=== PATIENT | male | born 1940 | race Hispanic/Latino ===

== ENCOUNTER → 2018-10-17 | Outpatient (CLI) | payer OTHER ==
[~2018-10-17] MED LIST: AMLO5TAB9 PO; ASPI-1012 PO; ATOR20TA65 PO; CETI10TA57 PO; HYDR-4457 PO; LISI40TA4 PO; TERBINAFINE PO; TYLENOL ARTHRITIS PO
== END | disposition home or self-care (01) ==
LOC: RAH 12:40
PROVIDERS: ATTEND Family Medicine
DX: R22.41 Localized swelling, mass and lump, right lower limb (principal)
CPT/HCPCS: 93971

== ENCOUNTER → 2018-12-13 | Outpatient (CLI) | payer OTHER | END | disposition home or self-care (01) | LOC: RAH 12:46 | PROVIDERS: ATTEND Family Medicine | DX: M71.21 Synovial cyst of popliteal space [Baker], right knee (principal) | CPT/HCPCS: 93971 ==

== ENCOUNTER 2024-07-23 20:18 | Emergency (ER) | payer OTHER ==
[~2024-07-23] VITALS: Ht 160 cm; Wt 83.0 kg
[~2024-07-23 20:18] MED LIST changes: +AMLO-257 PO; -AMLO5TAB9 PO; -LISI40TA4 PO; +LISI40TA9 PO
--- NOTE | 2024-07-23 20:25 | ERN ---
ED Note History of Present Illness Stated Complaint: C/O BACK PAIN TO LEFT SIDE Chief Complaint: Back Pain-No Injury Time Seen by MD: 20:21 Dictation: PATIENT IS AN 84-YEAR-OLD MALE HERE WITH COMPLAINTS OF LEFT FLANK PAIN WITH A AN ACUTE ONSET 17:00 HOURS HE STATES HE WAS SITTING THERE EATING DINNER WHEN HE FELT THE PAIN. HE DENIES ANY FEVER CHILLS NAUSEA VOMITING NO CHANGE IN URINATION. , DENIES ANY HISTORY OF BACK INJURY SURGERIES, HEMATURIA, UROLITHIASIS. Allergies: Coded Allergies: No Known Allergies (Unverified Allergy, Unknown, 12/12/18) Home Meds Active Scripts Hydrocodone/Acetaminophen ([place] 5-325 Tablet) 1 Each Tablet, 1-2 EACH PO Q6HPRN PRN for PAIN, #60 TAB Prov:NATHANIEL NEW MD 10/03/18 Aspirin (ASPIRIN) 325 Mg Tablet, 325 MG PO BID, #40 TAB Prov:NATHANIEL NEW MD 10/03/18 Reported Medications [Tylenol Arthritis] No Conflict Check, 650 MG PO AD PRN for PAIN LEVEL 1 TO 5 09/28/18 Cetirizine HCl (Cetirizine HCl) 10 Mg Tablet, 10 MG PO DAILY PRN for ALLERGIES, TAB 09/28/18 Atorvastatin Calcium (Atorvastatin Calcium) 20 Mg Tablet, 20 MG PO HS, TAB 09/28/18 [Torbinafine Hcl] No Conflict Check, 200 MG PO AM 09/28/18 Amlodipine Besylate (Amlodipine Besylate) 5 Mg Tablet, 5 MG PO DAILY, TAB 11/18/14 Lisinopril (Lisinopril) 40 Mg Tablet, 40 MG PO DAILY, TAB 03/13/14 Past Medical History Past Medical History: High Cholesterol, Hypertension Surgical History: Unknown RN Note Reviewed/Agreed w/PFSH: Yes Review of System Dictation CONSTITUTIONAL: NEGATIVE EXCEPT FOR HPI HEAD/FACE: NEGATIVE EXCEPT FOR HPI EENT: NEGATIVE EXCEPT FOR HPI RESPIRATORY: NEGATIVE EXCEPT FOR HPI GASTROINTESTINAL/ABDOMINAL: NEGATIVE EXCEPT FOR HPI LEFT FLANK PAIN GENITOURINARY: NEGATIVE EXCEPT FOR HPI MUSCULOSKELETAL: NEGATIVE EXCEPT FOR HPI INTEGUMENTARY: NEGATIVE EXCEPT FOR HPI NEUROLOGICAL/PSYCH: NEGATIVE EXCEPT FOR HPI HEMATOLOGIC/LYMPHATIC: NEGATIVE EXCEPT FOR HPI ALL SYSTEMS NEGATIVE, EXCEPT NOTED ABOVE. 13 POINT REVIEW OF SYSTEMS ASSESSED AND ALL NEGATIVE EXCEPT FOR ABOVE. Initial Vital Sign VS Vital Signs Date Time Temp Pulse Resp B/P (MAP) Pulse Ox O2 Delivery O2 Flow Rate FiO2 07/23/24 20:20 98.1 66 20 168/83 96 Room Air 07/23/24 20:48 0 21 Physical Exam Dictation VITAL SIGNS REVIEWED GENERAL APPEARANCE: ALERT, ORIENTED X 3, MODERATE ACUTE DISTRESS, WELL DEVELOPED, NOURISHED. HEAD AND FACE: NON-TRAUMATIC. EYES: PERRL, PINK CONJUNCTIVAS, EYELID NO TRAUMA, ANTERIOR CHAMBER WITH ARCUS SENILIS. EARS: PINNAS INTACT AND NO SIGNS OF TRAUMA OR ERYTHEMA EAR CANALS CLEAR AND NO DISCHARGE TM NO ERYTHEMA NOSE: NO DISCHARGE, NO BLEEDING. OROPHARYNX: MOUTH NORMAL, TONGUE PINK, PHARYNX CLEAR,NO ERYTHEMA, TONSILS NO EXUDATES, NO ABSCESSES NOTED, MUCOUS MEMBRANE MOIST NECK: SUPPLE, NON-TENDER, NO THYROMEGALY, NO MASSES, NO JVD, NO BRUITS BREAST:DEFERRED CHEST:NO TENDERNESS, NO CREPITUS, NO PARADOXICAL MOVEMENT, NO RETRACTIONS LUNGS:CLEAR, WELL-VENTILATED, SYMMETRIC, NO RALES, NO WHEEZING, NO RHONCHI, NO STRIDOR, GOOD BREATH SOUNDS BILATERALLY HEART: REGULAR RATE, REGULAR RHYTHM, NO MURMUR, NO GALLOPS VASCULAR: NO PERIPHERAL EDEMA, ABDOMEN: SOFT, POSITIVE BOWEL SOUNDS, NONDISTENDED, NO GUARDING, NONTENDER, NO REBOUND, NO MASSES NO HEPATOMEGALY, NO SPLENOMEGALY, NO MARCUS'S SIGN, NO HERNIAS. NEGATIVE CVAT BILATERALLY RECTAL: DEFERRED GENITAL: DEFERRED NEUROLOGICAL: NORMAL SPEECH, MOTOR FUNCTION INTACT, SENSORY FUNCTION INTACT MUSCULOSKELETAL: NECK NONTENDER, FULL RANGE OF MOTION, BACK NONTENDER, FULL RANGE OF MOTION, EXTREMITIES: NONTENDER, FULL RANGE OF MOTION SKIN: COLOR PINK, DRY, NO TURGOR, NO RASH, NO LACERATIONS, NO ABRASIONS, NO CONTUSIONS. LYMPHATIC: DEFERRED Results (Laboratory/Radiology) Laboratory/Radiology Laboratory Tests Test 07/23/24 21:40 Urine Color LIGHT-YELLOW (YELLOW) Urine Appearance CLEAR (CLEAR) Urine pH 6.0 (5.0-8.0) Urine Specific [place] 1.018 (1.001-1.031) Urine Protein NEGATIVE mg/dL (NEGATIVE) Urine Glucose (UA) NEGATIVE mg/dL (NEGATIVE) Urine Ketones NEGATIVE mg/dL (NEGATIVE) Urine Occult Blood NEGATIVE (NEGATIVE) Urine Nitrate NEGATIVE (NEGATIVE) Urine Bilirubin NEGATIVE mg/dL (NEGATIVE) Urine Urobilinogen 0.2 mg/dL (0.2-1.0) Urine Leukocyte Esterase NEGATIVE Chika/uL Labs Reviewed?: Yes ED Course ED Course Orders Procedure Category Date Status Time Ketorolac PHA 07/23/24 Complete Tromethamine 30mg/Ml 20:30 Urinalysis Profile LAB 07/23/24 In Process 20:23 Current Medications Medications (Trade) Dose Ordered Sig/Dara Route PRN Reason Start Time Stop Time Status Last Admin Dose Admin Ketorolac Tromethamine (toRADol) 30 mg ONCE ONCE IM 07/23/24 20:30 07/23/24 20:31 DC 07/23/24 20:43 Vital Signs Date Time Temp Pulse Resp B/P (MAP) Pulse Ox O2 Delivery O2 Flow Rate FiO2 07/23/24 20:48 67 19 156/73 99 Room Air* 0 21 07/23/24 20:20 98.1 66 20 168/83 96 Room Air 2200/URINE IS NEGATIVE NO HEMATURIA PATIENT WILL BE DISCHARGED HOME WITH ACUTE ONSET OF LUMBAR STRAIN GIVEN IBUPROFEN AND FLEXERIL, TOLD TO SEE HIS PRIMARY CARE Medical Decision Making MDM MEDICAL DECISION-MAKING BASED ON URINALYSIS TO DIFFERENTIATE BETWEEN MUSCLE PAIN AND GENITOURINARY ETIOLOGY FOR BACK PAIN URINALYSIS NEGATIVE PATIENT DISCHARGED HOME WITH A ACUTE LUMBAR STRAIN GIVEN IBUPROFEN AND FLEXERIL DX & DISP Disposition: Discharge Departure Impression: Primary Impression: Acute lumbar myofascial strain Condition: Stable Scripts Ibuprofen (Ibuprofen 800 mg Tab) 800 Mg Tab 800 MG PO Q8H PRN for fever or pain, #30 TAB 0 Refills Prov: COLIN HERNANDEZ PROJECT CONTROL MANAGER 07/23/24 Cyclobenzaprine HCl (Cyclobenzaprine HCl) 10 Mg Tablet 1 TAB PO TID for muscle spasms for 10 Days, #30 TAB 0 Refills Prov: COLIN HERNANDEZ PRO[employer] CONTROL MANAGER 07/23/24 Additional Instructions: FOLLOW-UP WITH PRIMARY CARE PROVIDER IN 1 TO 2 DAYS. TAKE MEDICATIONS DIRECTED HERE IN THE EMERGENCY ROOM. OKAY TO CONTINUE HOME MEDICATIONS UNLESS OTHERWISE DISCUSSED DURING YOUR VISIT IN THE EMERGENCY ROOM TODAY. RETURN TO YOUR NEAREST EMERGENCY ROOM IF SYMPTOMS WORSEN OR IF THERE IS NO IMPROVEMENT. CALL 911 IF YOU NEED IMMEDIATE ASSISTANCE. TAKE TYLENOL OR MOTRIN [id number] NEEDED AND IF NO CONTRAINDICATIONS ARE PRESENT. INCREASE ORAL HYDRATION. A WOUND CULTURE OR URINE CULTURE WAS ORDERED HERE IN THE EMERGENCY ROOM DEPARTMENT PLEASE FOLLOW-UP WITH PRIMARY CARE PROVIDER AND ADVISE THEM TO GET REPEAT PORTS FROM OUR FACILITY. IF YOU HAD ANY GONZALEZ WRAP/SPLINTS THAT WERE APPLIED HERE, PLEASE DO NOT REMOVE THEM UNTIL YOU SEE YOUR PRIMARY CARE OR SPECIALTY. TAKE IBUPROFEN AND FLEXERIL EVERY 8 HOURS WITH FOOD FOR THE NEXT TWO DAYS. WARM COMPRESSES TO BACK THREE TO 4 TIMES A DAY. SEE YOUR PRIMARY CARE DOCTOR FOR FOLLOW UP AND MANAGEMENT Referrals: KATHLEEN DOUGLAS MD (PCP) Time of Disposition: 22:01 I have reviewed the case, and I agree with, Diagnosis and Plan COLIN HERNANDEZ NP Jul 23, 2024 20:25
[2024-07-23] MEDS: ketOROlac 30MG VIAL (30MG/ML) IM ONE (20:43)
[2024-07-23 21:54] LABS: APPEARANCE,URINE CLEAR (CLEAR); BILIRUBIN,URINE NEGATIVE (NEGATIVE); COLOR,URINE LIGHT-YELLOW (YELLOW); GLUCOSE, URINE (UA) NEGATIVE (NEGATIVE); KETONES,URINE NEGATIVE (NEGATIVE); LEUKOCYTE ESTERASE ,URINE NEGATIVE Leu/uL (NEGATIVE); NITRATE,URINE NEGATIVE (NEGATIVE); OCCULT BLOOD,URINE NEGATIVE (NEGATIVE); PROTEIN,URINE NEGATIVE (NEGATIVE); UROBILINOGEN,URINE 0.2 mg/dL (0.2-1.0)
[2024-07-23 21:57] LABS: ADD UA MICROSCOPIC YES
[2024-07-23] MEDS ORDERED: CYCL-309 PO (22:02)
[2024-07-23] MEDS ORDERED: IBUP-2077 PO (22:02)
[2024-07-23 22:07] LABS: MUCUS,URINE RARE LPF (None Seen)
[2024-07-23] MEDS: CYCLOBENZAPRINE HCL 10 MG TABLET PO ONE (22:15)
[2024-07-23] MEDS: dexaMETHasone SOD PHOSPHATE 4 MG/ML 1ML VIAL IM ONE (22:15)
[2024-07-23 22:24] VITALS: BP 142/76; PULSE 72; RESP 18; TEMP 98.1; O2SAT 99
== END 2024-07-23 22:26 | disposition home or self-care (01) ==
LOC: EDH 20:18
DX: S39.012A Strain of muscle, fascia and tendon of lower back, initial encounter (principal); E78.00 Pure hypercholesterolemia, unspecified; I10 Essential (primary) hypertension; Z79.82 Long term (current) use of aspirin; Z79.899 Other long term (current) drug therapy; X58.XXXA Exposure to other specified factors, initial encounter; Y93.89 Activity, other specified; Y92.89 Other specified places as the place of occurrence of the external cause; Y99.8 Other external cause status
CPT/HCPCS: 99284; 81001; 96372 ×2; J1100; J1885